=== PATIENT | male | born 1980 | race African-American/Black ===

== ENCOUNTER 2017-05-03 14:46 | Emergency (ER) | payer SELFPAY ==
[~2017-05-03] VITALS: Ht 180.3 cm; Wt 110.0 kg
[2017-05-03] MEDS ORDERED: KETOROLAC 60MG/2ML VIAL IM ONE (18:00)
[2017-05-03] MEDS ORDERED: MORPHINE SULFATE 4 MG/ML CPJ (NOT FOR IM USE) IV STA (18:40)
[2017-05-03] MEDS ORDERED: ONDANSETRON HCL 4MG/2ML VIAL IV STA (18:40)
[2017-05-03] MEDS ORDERED: SODIUM CHLORIDE 0.9% 1,000 ML IV ONE (18:40)
[2017-05-03] MEDS ORDERED: ONDANSETRON HCL 4MG/2ML VIAL IV ONE (18:45)
[2017-05-03] MEDS ORDERED: PROPOFOL 200MG/20ML VIAL IV ONE (18:45)
[2017-05-03] MEDS ORDERED: KETOROLAC 30MG/ML VIAL IV ONE (20:45)
[2017-05-03 22:04] VITALS: BP 149/95
== END 2017-05-03 23:10 | disposition home or self-care (01) ==
LOC: ER 15:58
DX: S93.04XA Dislocation of right ankle joint, initial encounter (principal); X50.1XXA Overexertion from prolonged static or awkward postures, initial encounter; Y93.89 Activity, other specified; Y92.89 Other specified places as the place of occurrence of the external cause
CPT/HCPCS: 73610; 73620; 73630; 96361; 96374; 96375; 99152; 99285; J1885; J2270; J2405; J7030; Z7610; J2704

== ENCOUNTER 2018-01-31 02:19 | Emergency (ER) | payer OTHER ==
[~2018-01-31] VITALS: Ht 180.3 cm; Wt 86.0 kg
[2018-01-31] MEDS ORDERED: IBUPROFEN 600MG TABLET PO ONE (03:45)
[2018-01-31 04:39] LABS: CHLORIDE 107 mEq/L (98-107)
[2018-01-31 04:44] LABS: BASOPHILS % 0.5 % (0.0-2.0); EOSINOPHILS % 1.7 % (0.0-5.0); HEMATOCRIT. 47.6 % (42.0-52.0); HEMOGLOBIN. 15.5 g/dL (14.0-18.0); LYMPHOCYTES % 22.1 % (20.0-50.0); MEAN CORPUSCULAR VOLUME 85.9 fL (80.0-94.0); MONOCYTES % 6.3 % (2.0-8.0); NEUTROPHILS % 69.4 % (40.0-76.0); PLATELET 194 x1000/uL (130-400); RED BLOOD CELL COUNT 5.55 mill/uL (4.7-6.1); RED CELL DISTRIBUTION WIDTH 14.8 % (11.6-14.6)
[2018-01-31 06:15] VITALS: BP 144/76
== END 2018-01-31 06:16 | disposition home or self-care (01) ==
LOC: ER 02:19
DX: R07.89 Other chest pain (principal); I10 Essential (primary) hypertension; F17.200 Nicotine dependence, unspecified, uncomplicated
CPT/HCPCS: 36415; 71045; 80053; 84484; 85025; 93005; 99285